=== PATIENT | female | born 1945 | race Two or more races ===

== ENCOUNTER 2018-10-06 11:29 | Day surgery (SDC) | payer MEDICARE, OTHER ==
[2018-10-01 14:52] LABS: Basophils # (auto) 0.1 uL; Basophils % (auto) 1.1 % (0.0-2.0); Eosinophils # (auto) 0.2 uL; Eosinophils % (auto) 2.6 % (0.0-7.0); Hematocrit 40.2 % (36.0-46.0); Hemoglobin 13.2 g/dL (12.2-16.2); Lymphocytes # (auto) 1.4 uL; Lymphocytes % (auto) 21.4 % (10.0-50.0); Mean Corpuscular Hemoglobin 29.5 pg (28.0-32.0); Mean Corpuscular Hgb Conc. 32.9 g/dL (32.0-36.0); Mean Corpuscular Volume 89.9 fL (80.0-100.0); Monocytes # (auto) 0.4 uL; Monocytes % (auto) 6.1 % (0.0-12.0); Neutrophils # (auto) 4.5 uL; Neutrophils % (auto) 68.8 % (37.0-80.0); Platelet Count (auto) 341 10^3/uL (140-450); Red Blood Cells 4.47 10^6/uL (4.0-5.20); Red Cell Distribution Width 13.5 % (11.8-14.3); White Blood Cell 6.6 10^3/uL (4.4-10.8)
[2018-10-01 15:06] LABS: INR 0.91 (0.9-1.15); Partial Thromboplastin Time 26.9 sec (23.64-32.05)
[2018-10-01 15:15] LABS: Albumin 4.1 g/dL (3.4-5.0); BUN/Creatinine Ratio 16.9; Calcium 9.1 mg/dL (8.5-10.1)
[2018-10-01 15:18] LABS: Bilirubin, Total 0.3 mg/dL (0.2-1.0); Total Protein 7.4 g/dL (6.4-8.2)
[2018-10-01 15:32] LABS: Urine Amorphous Crystal FEW /hpf (None Seen); Urine Bacteria NONE SEEN /hpf (None Seen); Urine Blood Negative /uL (Negative); Urine Specific Gravity 1.015 (1.001-1.035); Urine WBC 8 /hpf (0 - 5)
[~2018-10-06] VITALS: Ht 162.6 cm; Wt 78.0 kg
[~2018-10-06 11:29] MED LIST: ALPR0.254 PO; ASPI81TA27 PO; BACL10TA PO; CHOL20007 PO; CINN500C14 PO; CLOP75TA28 PO; DEXL60CA3 PO; DICY10CA12 PO; DIP005TP TOP; DIPH25TA54 PO; EZET10TA6 PO; FEBU40TA PO; FERR18TA PO; GABA100C9 PO; HYDR-531 PO; IPR002IS HHN; LEVA0.6310 IN; LEVA1AER IN; LEVAAER IN; LEVO75TA6 PO; LEVOTAB51 PO; LIDO5DIS21 TOP; METO-169 PO; MONT10TA34 PO; MULTTAB5 OR; NITR0.4S29 SL; OLOP0.15; OMEG120015 PO; POLY335015 PO; PROM12.57 PO; SIME80CH PO; SUCR1TAB PO; TRIP2.5T9 PO
[2018-10-06] MEDS ORDERED: GENTAMICIN SULF 80 MG/2 ML VIAL ONE (14:14)
[2018-10-06] MEDS ORDERED: MEPERIDINE HCL (25 MG/ML) 1ML VIAL IV ONE (14:35)
[2018-10-06] MEDS ORDERED: fentaNYL CITRATE 100 MCG/2 ML VL ONE (14:44)
[2018-10-06] MEDS ORDERED: DexAMETHasone SOD PHOS 10MG/1ML VIAL INJ ONE (14:45)
[2018-10-06] MEDS ORDERED: MIDAZOLAM HCL 1MG/1ML-2 ML VIAL ONE (14:45)
[2018-10-06] MEDS ORDERED: PROPOFOL 10 MG/ML 20 ML IV ONE (15:03)
[2018-10-06] MEDS ORDERED: MIDAZOLAM HCL 1MG/1ML-2 ML VIAL IV PRN (15:30)
[2018-10-06] MEDS ORDERED: ONDANSETRON HCL 4 MG/2 ML VIAL IV ONE (15:30)
[2018-10-06] MEDS ORDERED: ACCU-CHEK COMFORT CURVE STRIP VI ONE (15:30)
[2018-10-06] MEDS ORDERED: fentaNYL CITRATE 100 MCG/2 ML VL IV ONE (16:00)
[2018-10-06 17:00] VITALS: BP 135/65
== END 2018-10-06 17:35 | disposition home or self-care (01) ==
LOC: SUR 11:29
PROVIDERS: ATTEND Urology
DX: N81.11 Cystocele, midline (principal); N81.89 Other female genital prolapse; N95.2 Postmenopausal atrophic vaginitis; N39.0 Urinary tract infection, site not specified; E66.9 Obesity, unspecified; E11.9 Type 2 diabetes mellitus without complications; E03.9 Hypothyroidism, unspecified; I25.10 Atherosclerotic heart disease of native coronary artery without angina pectoris; I11.0 Hypertensive heart disease with heart failure; I50.9 Heart failure, unspecified; I70.0 Atherosclerosis of aorta; J44.9 Chronic obstructive pulmonary disease, unspecified; F41.9 Anxiety disorder, unspecified; E78.5 Hyperlipidemia, unspecified; M10.9 Gout, unspecified; Q40.1 Congenital hiatus hernia; D64.9 Anemia, unspecified; Z68.29 Body mass index [BMI] 29.0-29.9, adult; Z79.4 Long term (current) use of insulin; Z79.84 Long term (current) use of oral hypoglycemic drugs; Z79.899 Other long term (current) drug therapy; Z79.01 Long term (current) use of anticoagulants; Z95.1 Presence of aortocoronary bypass graft; Z95.9 Presence of cardiac and vascular implant and graft, unspecified; Z87.891 Personal history of nicotine dependence; Z98.890 Other specified postprocedural states; Z88.8 Allergy status to other drugs, medicaments and biological substances; Z88.1 Allergy status to other antibiotic agents; Z88.5 Allergy status to narcotic agent; Z90.721 Acquired absence of ovaries, unilateral; Z90.710 Acquired absence of both cervix and uterus
CPT/HCPCS: 36415; 57260; 57282; 80053; 81001; 82962; 85025; 85610; 85730; 87086; 88305; J1100; J1580; J2175; J2250; J2704; J3010